=== PATIENT | female | born 1935 | race Caucasian/White ===

== ENCOUNTER 2016-07-31 14:34 | Inpatient (IN) | payer MEDICARE ==
--- NOTE | ~2016-07-31 | CO ---
Unit #: [id number] #: [id number] Patient: FRANCIS HODGE [id number] [place] [address] [facility]. [place], [place] [address] [id number] MR#: [id number] NAME: FRANCIS HODGE ROOM: 472 Age: 81 Sex: F Admission Date: 07/31/2016 : 1935 Attending Physician: Demetria Merritt M.D. Primary Care Physician: Shruthi Kruse M.D. Consultation Date: 08/01/2016 CONSULTATION REPORT REASON FOR CONSULTATION Surgical clearance. HISTORY OF PRESENT ILLNESS The patient is a 81-year-old female who lives at [facility], who is a wheelchair bound and history of dementia. She has periodic episodes, where she is yelling out into the hallway. The patient was brought in for complaints of pain. Apparently, a month ago, she fell out of her wheelchair. She was brought in for evaluation of hip pain and was found to have a left femoral neck fracture. According to the nurse, surgery has planned not to operate at this time due to her immobility status after discussion with family. The patient does have a history of a chronic diastolic congestive heart failure. She was last seen by our group in 12/2015 and treated for CHF. Her last known ejection fraction was 60%. She has mild AI and mild tricuspid valve regurgitation. She also has a history of coronary artery disease with coronary artery bypass graft surgery in [place] in 2002. She has a history of paroxysmal atrial fibrillation and is currently in sinus rhythm and non-anticoagulation from what I can assume is due to history of falls. The patient is no distress at this time. She has a multitude of complaints and has repetitive speech. PAST MEDICAL HISTORY 1. Significant for chronic diastolic heart failure. Echocardiogram in 2014 showed EF 60% to 65% with moderate septal hypokinesis, mild concentric left ventricular hypertrophy, calcified mitral valve with no significant mitral stenosis or regurgitation, mild tricuspid valve regurgitation, and aortic valve insufficiency. 2. Coronary artery disease with coronary artery bypass graft surgery in 2002 in [place] with unknown details. 3. Paroxysmal atrial fibrillation, not on anticoagulation. 4. Hypertension. 5. Hyperlipidemia. 6. Chronic pain. 7. Stage 3 chronic kidney disease. 8. Immobility, wheel-chair bound. SOCIAL HISTORY The patient has a history of tobacco use. Not currently smoker. No alcohol or drug abuse. FAMILY HISTORY Noncontributory. Unit #: [id number] #: [id number] Patient: FRANCIS HODGE ALLERGIES None. OUTPATIENT MEDICATIONS Include multivitamin p.o. daily; vitamin D3 1000 international units p.o. daily; Pepcid 20 mg daily; Ferrex 150 mg capsule daily; aspirin 81 mg daily; K-Dur 20 mEq daily; vitamin B12 100 mcg every other day; Lasix 40 mg daily; Combivent unit dose inhaler one inhalation t.i.d.; Neurontin 100 mg t.i.d.; hydralazine 100 mg t.i.d.; metoprolol tartrate 50 mg q.12 hours; sodium bicarb 650 mg b.i.d.; Flomax 0.4 mg daily; Xanax 0.5 mg at bedtime as needed for sleep; Lortab 5/325 p.o. q.6 hours as needed for pain; sliding scale insulin subcu with meals and at bedtime; Levemir 15 units subcu at bedtime. DIAGNOSTIC STUDIES CARDIOVASCULAR STUDIES: EKG; sinus rhythm, T-wave abnormalities in the inferolateral leads, unchanged from prior. LABORATORY RESULTS: Sodium 133, potassium 4.2, chloride 100, CO2 of 26, BUN 27, creatinine 1.6, glucose 118. White blood cell count 9.4, hemoglobin 11.5, hematocrit 35.1, and platelet count 340. REVIEW OF SYSTEMS Unable to complete due to dementia. PHYSICAL EXAMINATION GENERAL: The patient is awake and alert. Oriented to person. Color is pink. SKIN: Warm and dry. NEUROLOGIC: No focal motor sensory deficits. VITAL SIGNS: Afebrile. Heart rate 92, blood pressure is elevated at 193/78. HEENT: Normal carotid upstrokes. No auscultated bruit. Negative JVD, lying supine. Negative hepatojugular reflux. CHEST: Respirations are regular, unlabored at rest. Bilateral breath sounds. Have good air entry throughout all lung hwang. No crackles, rubs, or wheezes are heard. HEART: S1 and S2. Regular rate and rhythm. No murmurs, rubs, or gallops. ABDOMEN: Soft, nontender, and nondistended. Positive bowel sounds in all 4 quadrants. No ascites noted. EXTREMITIES: Bilateral lower extremities have no pretibial pitting edema. DP/PT pulses are 2+. Capillary refill less than 3 seconds. IMPRESSION 1. Status post fall with left femoral neck fracture. 2. Chronic diastolic heart failure, appears compensated. 3. Uncontrolled hypertension. 4. History of chronic kidney disease. 5. History of paroxysmal atrial fibrillation, not on anticoagulants. 6. History of coronary artery disease with coronary artery bypass graft surgery in 2002 in [place], [place]. 7. Dementia. 8. Reformed smoker. PLAN Surgery is not planned at this time. Her EKG does have some T-wave abnormalities in the inferolateral leads consistent with ischemia, but Unit #: [id number] #: [id number] Patient: FRANCIS HODGE this appears unchanged when compared to prior EKG report. Not in any acute systolic heart failure at this time. If surgery planned, please call us back. We will restart home blood pressure medications as the patient is hypertensive. Dictated by... Laura Zurita APRN for Driss Zurtia M.D. NEOC/yadira TD: 08/02/2016 00:57 JOB #: [id number] CONSULTATION REPORT Page 1 of 1 X X CONSULTATION REPORT
--- NOTE | ~2016-07-31 | DS ---
Unit #: [id number] #: [id number] Patient: FRANCIS HODGE [id number] [address] [address] [id number] I MR#: [id number] NAME: FRANCIS HODGE ROOM: 47 Age: 81 Sex: F Admission Date: 07/31/2016 : 1935 Discharge Date: 08/03/2016 Attending Physician: Demetria Merritt M.D. Primary Care Physician: Shruthi Kruse M.D. DISCHARGE SUMMARY FINAL DIAGNOSES 1. Left subacute femoral neck fracture. 2. Deep vein thrombosis of left lower extremity. 3. Left heel decubitus ulcer. 4. History of coronary artery disease status post coronary artery bypass graft. 5. Hypertension. 6. Diabetes mellitus. 7. Chronic kidney disease. 8. Left ventricular ejection fraction of 60%. 9. Paroxysmal atrial fibrillation. 10. History of chronic diastolic congestive heart failure. 11. Chronic immobility. 12. History of dementia. 13. Chronic anemia. DISCHARGE MEDICATIONS 1. Keflex 250 mg p.o. q.i.d. for 3 days for UTI. Please note patient received IV ceftriaxone during hospitalization. 2. Potassium 20 mEq daily. 3. Vitamin D3 - 1,000 units daily. 4. Lortab 5/325 mg 1 tablet q.4 p.r.n. pain. 5. Aspirin 81 mg daily. 6. Multivitamin daily. 7. Famotidine 20 mg daily. 8. Ferrex 150 mg daily. 9. Levemir 10 units subcu at bedtime. 10. Zestril 10 mg b.i.d. 11. Hydralazine 100 mg q.8 hours. 12. Lasix 40 mg p.o. daily. 13. Lopressor 50 mg q.12. 14. Norvasc 5 mg b.i.d. 15. Xanax has been discontinued. 16. Haldol 1 mg b.i.d. 17. Neurontin 100 mg t.i.d. 18. Xarelto 15 mg b.i.d. until 08/23/16 and then change to 20 mg daily. 19. Tylenol 650 q.6 p.r.n. 20. Flomax 0.4 mg daily. 21. Sodium bicarb 650 mg b.i.d. 22. Combivent nebulizer treatment q.4 p.r.n. CONSULTATIONS DURING HOSPITALIZATION 1. Dr. Chuy Munson from orthopedic surgery. 2. Dr. Wellington from cardiology service. Unit #: [id number] #: [id number] Patient: FRANCIS HODGE DIAGNOSTIC STUDIES LAB WORKUP ON DISCHARGE: BMP shows sodium 136, potassium 3.6, chloride 105, BUN 22, creatinine 1.4, calcium 8.2, magnesium 1.7. CBC shows WBC 9.4, hemoglobin 11.5, hematocrit 35.1, platelet count 340. Urinalysis shows 3+ bacteria. RADIOLOGIC STUDIES DONE DURING HOSPITALIZATION: CT scan of the lower extremities, which show displaced subcapital fracture of the left femoral neck. Ultrasound of the left lower extremity positive for occlusive DVT beginning in the mid superficial femoral vein and extending through the below knee peroneal and tibial veins. HOSPITAL COURSE Ms. Hodge is a 81-year-old female who was admitted from the longterm. Patient had a fall about a month ago. She had an x-ray done at that time, which was negative for fracture. At some point she started complaining of pain in the left hip. CT scan was done, which showed fracture. Patient was admitted to the hospital. Dr. Munson evaluated the patient. Patient is nonambulatory and currently appears comfortable with passive range of motion of the left hip. Patient did not complain of pain during the examination. Patient worked with PT/OT and did not complain of pain. Per ortho, only surgery which can be done is left hip hemiarthroplasty, and this would only be in an effort to restore ambulatory capabilities or to ease the patient's positioning in the wheelchair and with transferring. At this point, there seems to be no advantage to either of these potential benefits that she is already comfortable. As per ortho, the risk of operation certainly outweighs the potential benefit in this instance. Discussed with the patient's sister. The patient's sister does not want any surgical procedure done at this time. Patient does have a left heel decubitus ulcer. Patient will need heel protection device and also Mepilex-type dressing. The patient was found to have left lower extremity DVT. Was started on Lovenox 1 mg/kg body weight subcu q.12. That has been changed to Xarelto. UTI. Patient received IV Rocephin during hospitalization. That is being changed to Keflex. Patient did have elevated blood pressure. Medications have been adjusted as per med/rec. Continue to observe. EXAMINATION ON DISCHARGE VITAL SIGNS: Blood pressure is 162/66, respiratory rate 18, pulse is 79, temperature 98.4. CHEST: Decreased air entry bilaterally. CVS: Regular rhythm. EXTREMITIES: Left lower extremity swelling is present. Heel ulcer is present. Right side pulses are present. Negative edema. NEUROLOGIC: Patient is awake and alert, although not oriented. DISCHARGE INSTRUCTIONS 1. Patient is being discharged to longterm. 2. Medications as per med/rec. 3. Dr. Henry to follow the patient at rehab. 4. Daily Mepilex dressing change to left heel with Bactroban b.i.d. Unit #: [id number] #: [id number] Patient: FRANCIS HODGE 5. Juan boot to left heel. Dictated by... Kiya Francois TD: 08/03/2016 13:42 JOB #: [id number] DISCHARGE SUMMARY Page 1 of 1 X Demetria Merritt MD X DISCHARGE SUMMARY
--- NOTE | ~2016-07-31 | CR206 ---
[facility] A Service of [facility] RADIOLOGY TEXT RESULTS PATIENT: FRANCIS HODGE LOCATION: [place] [address] : [birth year] UNIT #: [id number] AGE: [address]: Demetria Merritt MD SEX: F ORDER DR: [id number] [facility] [address] [facility]. [place], [place] [address] [id number] I MR#: [id number] Acc #: [id number] NAME: FRANCIS HODGE : 1935 SEX: F [facility]: [facility]476 STUDY DESCRIPTION: CR Pelvis 1 or 2 Views Attending Physician: Demetria Merritt M.D. Ordering Physician: Evelina Flores M.D. Primary Care Physician: Shruthi Kruse M.D. MEDICAL IMAGING REPORT This report is preliminary unless electronic signature is present EXAM Pelvis 07/31/2016 1323 hours HISTORY Patient fell 2 weeks ago, hip pain. COMPARISON CT left hip 07/31/2016 FINDINGS AP pelvis film demonstrates left femoral neck fracture with superior and slight lateral migration of the distal femur fragment similar to that seen on CT today. There is slight impaction of the lesser trochanteric region into the superolateral head. The bones are generally osteopenic with degenerative changes seen at the sacroiliac joints, lumbar spine, pubic symphysis and right hip. Extensive atherosclerotic calcifications are present. IMPRESSION 1. Pelvis film confirms the presence of a left femoral neck fracture with proximal migration and impaction. 2. The bones diffusely osteopenic with moderate degenerative changes in the lumbar spine, sacroiliac joints, right hip and pubic symphysis. Dictated by... Bonnie Downey M.D. THIS IS AN ELECTRONICALLY VERIFIED REPORT Bonnie Downey M.D. at 07/31/2016 5:58 PM SMM/marcio TD: 07/31/2016 15:59 JOB #: [id number] [facility] A Service of [facility] RADIOLOGY TEXT RESULTS PATIENT: FRANCIS HODGE LOCATION: [facility] 472-01 : 37 UNIT #: [id number] AGE: [address]: Demetria Merritt MD SEX: F ORDER DR: MEDICAL IMAGING REPORT Page 1 of 1 COPY
--- NOTE | ~2016-07-31 | US85 ---
[facility] A Service of [facility] RADIOLOGY TEXT RESULTS PATIENT: FRANCIS HODGE LOCATION: [facility]- : 37 UNIT #: [id number] AGE: [address]: Demetria Merritt MD SEX: F ORDER DR: [id number] [facility] [address] [place], [place] [address] [id number] I MR#: [id number] Acc #: [id number] NAME: FRANCIS HODGE : 1935 SEX: F STUDY DATE/TIME: 08/01/2016 9:31 UNIT: [facility] ROOM: [facility] STUDY DESCRIPTION: US LE Veins Unilat or Ltd Stdy Attending Physician: Demetria Merritt M.D. Ordering Physician: Demetria Merritt M.D. Primary Care Physician: Shruthi Kruse M.D. MEDICAL IMAGING REPORT This report is preliminary unless electronic signature is present EXAM Unilateral right lower extremity venous Doppler, 08/01/2016. HISTORY Left femoral neck fracture with left leg immobility for 2 months. PROCEDURE Grayscale imaging, color flow Doppler imaging and Doppler wave form analysis. FINDINGS While the common and deep femoral and proximal superficial femoral veins are normal, there is occlusive thrombus in the mid to distal superficial femoral, vein, popliteal vein, and below-knee tibial and peroneal veins. IMPRESSION 1. Positive for occlusive DVT beginning in the mid superficial femoral vein and extending through the below-knee peroneal and tibial veins. The proximal femoral and deep femoral and proximal superficial femoral veins are normal. 2. Of note, the attached work sheet is mislabeled, reporting findings on the right, but, in fact, the findings are in the left lower extremity, as indicated by labeling on the images themselves. Dictated by... Kayden Anders M.D. THIS IS AN ELECTRONICALLY VERIFIED REPORT Kayden Anders M.D. at 08/03/2016 10:32 AM GUANACO/ede [facility] A Service [facility] RADIOLOGY TEXT RESULTS PATIENT: FRANCIS HODGE LOCATION: [place] [address]- : 37 UNIT #: [id number] AGE: [address]: Demetria Merritt MD SEX: F ORDER DR: TD: 08/01/2016 14:50 JOB #: [id number] MEDICAL IMAGING REPORT Page 1 of 1 COPY
--- NOTE | ~2016-07-31 | CO ---
Unit #: [id number] #: [id number] Patient: FRANCIS HODGE [id number] [facility] [address]. [place], [place] [address] [id number] I MR#: [id number] NAME: FRANCIS HODGE ROOM: 47 Age: 81 Sex: F Admission Date: 07/31/2016 : 1935 Attending Physician: Demetria Merritt M.D. Primary Care Physician: Shruthi Kruse M.D. Consultation Date: 08/01/2016 CONSULTATION REPORT CHIEF COMPLAINT Left femoral neck fracture. HISTORY OF PRESENT ILLNESS Ms. Hodge is a 81-year-old female, who has been admitted to [facility] for evaluation of a chronic to subacute left hip fracture. The patient herself is a poor historian with a history of dementia. The majority of the history is obtained from review of medical record and discussion with family. The patient currently resides in [facility] permanently. She has been nonambulatory for approximately the past year. She has had a fall approximately a month ago. Apparently, she had an x-ray at that time, which was negative for fracture. At some point, she began to complaint of pain in the left hip and facility staff also noticed decrease use of her feet and paddling her wheelchair. At least per the report of her sister, she seems to have little pain in her left at the current time. She is assisted by rehab staff in transferring from bed to chair. She states that she may take some increased pain medications, but is unsure. There is some question of a possible concomitant upper respiratory infection at this time as well. PAST MEDICAL HISTORY Coronary artery disease, status post CABG; paroxysmal atrial fibrillation; CHF; hypertension; chronic renal insufficiency; diabetes mellitus; chronic immobility, dementia, chronic anemia. PAST SURGICAL HISTORY Coronary artery bypass grafting and cholecystectomy. HOME MEDICATIONS Home medication list is reviewed include hydralazine, Lopressor, sodium bicarb, Lasix, Flomax, alprazolam, Lortab, NovoLog, Levemir, potassium, vitamin B12, furosemide, Combivent, Neurontin, multivitamin, vitamin D3, famotidine, ferrous sulfate, aspirin. SOCIAL HISTORY The patient resides currently at [facility]. She has a history of dementia. She has no alcohol, tobacco, or drug use. FAMILY HISTORY Noncontributory to the current illness. Unit #: [id number] #: [id number] Patient: FRANCIS HODGE REVIEW OF SYSTEMS Unable to obtain secondary to the patient's mental status. ALLERGIES No known drug allergies. PHYSICAL EXAMINATION GENERAL: Elderly appearing female, examined supine on her hospital bed. PSYCHIATRIC: She is arousable. She is awake and oriented to person only. She is disoriented to year and place. HEENT: Normocephalic and atraumatic cranium. Pupils equal, round, react to light. CARDIAC: Regular rate and rhythm. PULMONARY: No increased work of breathing. ABDOMEN: Nondistended. NEUROLOGIC: Grossly intact in all 4 extremities. No sensory deficits. Cranial nerves II through XII are grossly intact. VASCULAR: Her feet are warm and well perfused. LYMPHATICS: No lymphedema or lymphadenopathy. SKIN: There is no rashes, ulcers, or lesions over the left hip. There is no evidence of open injury or contusion. MUSCULOSKELETAL: She has no pain with log rolling of the left hip or with passive hip flexion up to 70 to 80 degrees on the left hip while supine in bed. She has a stage II decubitus ulcer on the lateral aspect of the right calcaneus. There is no odor. There is no induration or evidence of infection. She has a plantar flexion contracture of the left ankle. I am unable to passively dorsiflex her to even neutral. DIAGNOSTIC STUDIES IMAGING STUDIES: Plain film radiographs reviewed of the pelvis. These demonstrate a subacute versus chronic appearing left femoral neck fracture with bony erosion of the femoral head and sclerosis. The greater trochanter and femur are migrated proximally with an affected extremity shortened significantly. IMPRESSION A 81-year-old nonambulatory female with dementia and the following issues; 1. Left subacute versus chronic left femoral neck fracture. 2. Chronic immobility. 3. Left foot plantar flexion contracture. 4. Left heel stage II decubitus ulceration. PLAN 1. The patient is nonambulatory and currently appears comfortable with passive range of motion of the left hip. Surgical intervention would be in the form of a left hip hemiarthroplasty. This would only be in an effort to restore ambulatory capabilities or to ease the patient positioning in a wheelchair and with transferring. At this point, there seems to be no advantage to either of these potential benefits that she is already comfortable and is not going to return to any ambulatory function. She appears to have possible upper respiratory tract infection. The difficulty clearing secretions. She would certainly be at elevated risk for postoperative respiratory issues. As a result, I think the risk of operation certainly outweighs the potential benefit in this instance. We are going to hold off any surgical intervention; however, seen by physical therapy here to see if she transfers comfortably. If she is able to be Unit #: [id number] #: [id number] Patient: FRANCIS HODGE transferred comfortably and transported in a wheelchair comfortably, then we were going to continue with nonoperative management. 2. We are going to float her left heel while she is here and she will need heel protection device at discharge and Mepilex type dressing change. 3. We will continue to follow her throughout her hospital course. Dictated by... Chuy Munson M.D. JONATHAN/yadira TD: 08/02/2016 00:21 JOB #: [id number] CONSULTATION REPORT Page 1 of 1 X Chuy Munson MD CONSULTATION REPORT
--- NOTE | ~2016-07-31 | HP ---
Unit #: [id number] #: [id number] Patient: FRANCIS HODGE [id number] [facility] [place], [place] [address] [id number] MR#: [id number] NAME: FRANCIS HODGE ROOM: 472 Age: 81 Sex: F Admission Date: 07/31/2016 : 1935 Attending Physician: Demetria Merritt M.D. Primary Care Physician: Shruthi Kruse M.D. HISTORY AND PHYSICAL CHIEF COMPLAINT Lower extremity pain. HISTORY OF PRESENT ILLNESS This is a 81-year-old female who I understand lives in [facility]. She had a fall about two months ago or so although I am not sure of the details. She had an x-ray done at the residential facility which was negative. She started to complain of leg pain. She does have chronic immobility. She went to Dr. Henry's office and outpatient CT scan was done which was normal. It showed left femur fracture and patient was sent to emergency room. The patient is being admitted for left femoral neck fracture. Patient is still complaining of pain. According to her, it is better after she has taken the pain medications. The patient is a very poor historian and does not seem to have much history. I am not able to get anything else beside the pain. PAST MEDICAL HISTORY From the [facility] and from the previous hospitalization: 1. History of coronary artery disease, history of CABG in the past. 2. History of paroxysmal atrial fibrillation. 3. History of chronic diastolic congestive heart failure. 4. History of hypertension. 5. Chronic kidney disease stage 3. 6. Diabetes mellitus type 2. 7. Chronic immobility. 8. History of dementia. 9. Chronic anemia. PAST SURGICAL HISTORY 1. History of coronary artery bypass grafting. 2. History of cholecystectomy. HOME MEDICATIONS 1. Hydralazine 100 mg q.8 h. 2. Lopressor 50 mg q.12 h. 3. Sodium bicarbonate 650 b.i.d. 4. Lasix 30 mg daily. 5. Flomax 0.4 mg daily. 6. Alprazolam 0.5 mg h.s. 7. Lortab 5/325 one tablet q.4 h. p.r.n. 8. NovoLog sliding scale. 9. Levemir 15 units h.s. 10. Potassium 20 mEq daily. 11. Vitamin B12 100 mcg daily. Unit #: [id number] #: [id number] Patient: FRANCIS HODGE 12. Furosemide 40 mg daily. 13. Combivent inhaler t.i.d. 14. Neurontin 100 mg t.i.d. 15. Multivitamin daily. 16. Vitamin D3 daily. 17. Famotidine 20 mg daily. 18. Ferric one capsule daily. 19. Aspirin 81 mg daily. SOCIAL HISTORY Patient lives at [facility]. She has a past history of smoking but I understand she quit a year or so. No history of alcohol abuse or drug abuse. FAMILY HISTORY Noncontributory. Not obtainable. REVIEW OF SYSTEMS Not obtainable at this time. PHYSICAL EXAMINATION VITAL SIGNS: Blood pressure 175/87, respiratory rate 14, pulse 76, temperature 99, oxygen saturation is 100%. GENERAL: The patient is lying comfortably in bed. Does not seem to be in pain at this time. According to her, she is much better after taking medication. Patient is being evaluated in room 472. HEAD: Normocephalic. Eye movements are normal. NECK: Supple. Thyroid normal. Trachea is in midline. CHEST: Fair air entry. No additional sounds. HEART: S1, S2 positive, regular rhythm. ABDOMEN: Soft. Bowel sounds are positive. LOWER EXTREMITIES: Left lower extremity swelling is present, 2 to 3+. Pulses are palpable. Right lower extremity is normal. Left exam was very limited because she is in a lot of pain, I did not even try to move her leg. NEUROLOGIC: Awake, alert, oriented x1. DIAGNOSTIC STUDIES LABORATORY: WBC 11.9, hemoglobin 11.6, hematocrit 37.1, platelet count 316. Sodium 132, potassium 4.8, chloride 99, BUN 29, creatinine 1.5, glucose 86. Urinalysis is 3+ bacteria. IMAGING: CT scan of the lower extremities shows left femoral fracture. ASSESSMENT AND PLAN The patient is being admitted to med-surg unit with: 1. History of fall about two months ago at the residential, although x-ray was negative at that time. Now, with left femoral neck fracture. 2. Urinary tract infection. 3. Chronic kidney disease, stage 3. 4. Coronary artery disease with a history of CABG. 5. History of paroxysmal atrial fibrillation. 6. Chronic diastolic congestive heart failure. 7. Hypertension. 8. Diabetes mellitus type 2. PLAN Unit #: [id number] #: [id number] Patient: FRANCIS HODGE 1. Admit to med-surg. 2. Dr. Munson has been consulted. 3. Please refer to progress note for further orders. 4. Dr. Wellington has been consulted for cardiac clearance. 5. IV Rocephin 1 gram q.24 h. for UTI. 6. Cardiac enzymes times 1 will be done. 7. Accu-Cheks a.c. and h.s. and insulin sliding scale low dose protocol. 8. Left lower extremity venous Doppler will be done. 9. Will keep her n.p.o. after 12 midnight. 10. Please refer to progress note for further orders. 11. I did try to call patient's sister but there is no one available at this time. Dictated by Kiya Francois/sheng TD: 07/31/2016 19:37 JOB #: [id number] HISTORY AND PHYSICAL Page 1 of 1 X Demetria Merritt MD X HISTORY AND PHYSICAL
--- NOTE | ~2016-07-31 | EKG ---
PATIENT: FRANCIS HODGE UNIT #: [id number] Ventricular Rate: 66 BPM Atrial Rate: 66 BPM P-R Interval: 158 ms QRS Duration: 100 ms Q-T Interval: 474 ms QTC Calculation(Bezet): 496 ms P [place]: 75 degrees Calculated R [place]: -53 degrees Calculated T [place]: -63 degrees Diagnosis Line: Normal sinus rhythm with sinus arrhythmia Diagnosis Line: Left axis deviation Diagnosis Line: ST and T wave abnormality, consider inferior Diagnosis Line: ischemia Diagnosis Line: ST and T wave abnormality, consider anterolateral Diagnosis Line: ischemia Diagnosis Line: Prolonged QT Diagnosis Line: Abnormal ECG Diagnosis Line: When compared with ECG of 16-JAN-2016 05:25, Diagnosis Line: Premature supraventricular complexes are no longer Diagnosis Line: Present Diagnosis Line: QT has lengthened Diagnosis Line: Confirmed by LAURA DAUGHERTY MD ([id number]) on 08/02/2016 Diagnosis Line: 4:03:57 PM INTERPRETING MD: DAT ASNDRA
[2016-07-31 14:10] LABS: BASOPHIL# 0.1 X10e3 (0-0.3); BASOPHIL% 0.7 % (0-2.5); EOSINOPHIL# 0.4 X10e3 (0-0.7); EOSINOPHIL% 3.3 % (0.0-7.0); HEMATOCRIT 37.1 % (35.0-45.0); HEMOGLOBIN 11.6 gm/dL (12.0-16.0); LYMPHOCYTE# 1.9 X10e3 (1.0-3.5); LYMPHOCYTE% 15.9 % (17.0-45.0); MEAN CELL VOLUME 92.7 FL (83-96); MEAN CORPUSCULAR HGB CONC 31.2 g/dL (30-36); MEAN PLATELET VOLUME 7.9 FL (6.5-11.5); MONOCYTE# 0.8 X10e3 (0-1.0); MONOCYTE% 6.9 % (3.0-12.0); NEUTROPHIL# 8.7 X10e3 (1.5-7.1); NEUTROPHIL% 73.2 % (40-75); PLATELET COUNT 316 X10e3 (140-420); WHITE BLOOD COUNT 11.9 X10e3 (4.0-10.5)
[2016-07-31 14:12] LABS: DIFF IND NO
[2016-07-31 14:29] LABS: PARTIAL THROMBOPLASTIN TIME 25.9 SECONDS (23.5-31.3); PROTHROMBIN TIME (PATIENT) 10.4 SECONDS (9.6-11.5)
[~2016-07-31 14:34] MED LIST: ACETAMINOPHEN PO; AMLODIPINE BESYL5 MG PO; AMOXICILLIN; ANTACID650 MG PO; APRESOLINE10 M1 PO; ASPIRIN EC81 M1 PO; ASPIRIN81 MG PO; BACTRIM DS TABL1 TA1 PO; BISACODYL EC5 M1 PO; BP PILL; BUMEX PO; CALCIUM 500 +1 EAC5 PO; CLARITIN10 M3 PO; COUMADIN PO; COZAAR100 MG PO; FLOMAX0.4 M1 PO; FLUCONAZOLE200 M2; GABAPENTIN300 MG PO; HUMULIN N100 U/ML; HYDRALAZINE HC100 MG PO; HYDROCODON-ACE1 EAC7 PO; JUVEN PACKET1 EACH PO; LASIX20 MG PO; LEVEMIR FL100 UNIT/1 SUBQ; LEVEMIR100 UNITS/ SUBQ; LOC PO; LOPRESSOR PO; LOSARTAN POTASS25 MG PO; LOVENOX SUBQ; METOPROLOL TAR25 MG PO; MIRALAX17 GM PO; MOBIC15 MG PO; NEURONTIN; NEURONTIN100 MG PO; NITRO DUR TD; NITRODISC0.4 MG EXT; NORVASC10 MG PO; NOVOLIN R100 UNITS/; PEN-VEE K PO; PERCOCET; PERCOCET5/325 PO; PROMOD946 ML PO; PROTONIX PO; SODIUM BICARBO650 MG PO; STRESS FORMULA PO; TOPROL XL PO; VITAMIN C500 M3 PO; VITAMIN D31000 UNI1 PO; VITAMIN D31000 UNIT PO; XANAX0.5 M1 PO; XANAX0.5 MG PO; XANAX1 MG; ZESTRIL40 MG PO; ZINC SULFATE220 M1 PO; ZITHROMAX1 G/PKT PO; ZOCOR PO
[2016-07-31 14:40] LABS: BUN/CREATININE RATIO 19.33; CALCIUM SERUM 8.4 mg/dL (8.4-10.2); CREATININE SERUM 1.5 mg/dL (0.6-1.4); GLOM FILT RATE Estimated 32.8 mL/min (>60); POTASSIUM 4.8 mmol/L (3.5-5.1)
[2016-07-31] MEDS ORDERED: MULTIVITAMINS1 EAC4 PO (15:53)
[2016-07-31] MEDS ORDERED: FAMOTIDINE20 M1 PO (15:54)
[2016-07-31] MEDS ORDERED: VITAMIN D31000 UNIT PO (15:54)
[2016-07-31] MEDS ORDERED: FERREX 150 PLU1 EACH PO (15:55)
[2016-07-31] MEDS ORDERED: ASPIRIN81 MG PO (15:55)
[2016-07-31] MEDS ORDERED: K-LOR20 MEQ PO (15:56)
[2016-07-31] MEDS ORDERED: VITAMIN B12 PO (15:57)
[2016-07-31] MEDS ORDERED: FUROSEMIDE40 MG PO (15:58)
[2016-07-31] MEDS ORDERED: COMBIVENT U/D3 M1 INH (16:01)
[2016-07-31 16:02] LABS: URINE SOURCE CATH
[2016-07-31] MEDS ORDERED: NEURONTIN100 MG PO (16:03)
[2016-07-31] MEDS ORDERED: HYDRALAZINE HC100 MG PO (16:04)
[2016-07-31] MEDS ORDERED: SODIUM BICARBO650 MG PO (16:05)
[2016-07-31] MEDS ORDERED: LOPRESSOR PO (16:05)
[2016-07-31] MEDS ORDERED: LASIX PO (16:06)
[2016-07-31 16:07] LABS: URINE APPEARANCE TURBID; URINE BILIRUBIN NEG (NEG); URINE BLOOD TRACE (NEG); URINE COLOR YELLOW; URINE GLUCOSE NEG (NEG); URINE KETONE NEG (NEG); URINE LEUKOCYTE ESTERASE 3+ (NEG); URINE NITRATE NEG (NEG); URINE PROTEIN 2+ (NEG); URINE SPECIFIC GRAVITY 1.009 (1.003-1.035); URINE UROBILINOGEN 0.2 MG/DL (NEG)
[2016-07-31] MEDS ORDERED: FLOMAX0.4 M1 PO (16:07)
[2016-07-31] MEDS ORDERED: ALPRAZOLAM0.5 MG PO (16:08)
[2016-07-31] MEDS ORDERED: LORTAB 5-325 M1 EACH PO (16:09)
[2016-07-31 16:10] LABS: URINE BACTERIA AUWI 3+ (NEGATIVE); URINE SQUAMOUS EPITHELIAL CELL FEW /[HPF]; UWBCS1 AUWI INNUM (0-5)
[2016-07-31] MEDS ORDERED: NOVOLOG100 U/ML SUBQ (16:10)
[2016-07-31] MEDS ORDERED: LEVEMIR100 UNITS/ SUBQ (16:11)
[2016-07-31 16:21] LABS: U HYALINE CASTS AUWI 0-2 /[LPF]
[2016-07-31 18:17] LABS: CK TOTAL 25 IU/L (26-140)
[2016-08-01 03:13] LABS: BASOPHIL# 0.1 X10e3 (0-0.3); BASOPHIL% 1.1 % (0-2.5); EOSINOPHIL# 0.5 X10e3 (0-0.7); HEMATOCRIT 35.1 % (35.0-45.0); HEMOGLOBIN 11.5 gm/dL (12.0-16.0); LYMPHOCYTE# 2.2 X10e3 (1.0-3.5); LYMPHOCYTE% 23.3 % (17.0-45.0); MEAN CELL VOLUME 90.9 FL (83-96); MEAN CORPUSCULAR HEMOGLOBIN 29.7 PG (28-34); MEAN CORPUSCULAR HGB CONC 32.7 g/dL (30-36); MEAN PLATELET VOLUME 7.9 FL (6.5-11.5); MONOCYTE% 10.3 % (3.0-12.0); NEUTROPHIL# 5.7 X10e3 (1.5-7.1); NEUTROPHIL% 60.3 % (40-75); PLATELET COUNT 340 X10e3 (140-420); RED BLOOD COUNT 3.87 X10e (3.90-5.30); WHITE BLOOD COUNT 9.4 X10e3 (4.0-10.5)
[2016-08-01 03:15] LABS: DIFF IND NO
[2016-08-01 04:04] LABS: BUN/CREATININE RATIO 16.87; CALCIUM SERUM 8.5 mg/dL (8.4-10.2); CREATININE SERUM 1.6 mg/dL (0.6-1.4); GLOM FILT RATE Estimated 30.3 mL/min (>60); POTASSIUM 4.2 mmol/L (3.5-5.1)
[2016-08-02 03:45] LABS: BUN/CREATININE RATIO 17.14; CALCIUM SERUM 8.5 mg/dL (8.4-10.2); CREATININE SERUM 1.4 mg/dL (0.6-1.4); GLOM FILT RATE Estimated 35.6 mL/min (>60); MAGNESIUM 1.9 mg/dL (1.6-3.0); POTASSIUM 3.9 mmol/L (3.5-5.1)
[2016-08-03 06:01] LABS: BUN/CREATININE RATIO 15.71; CALCIUM SERUM 8.2 mg/dL (8.4-10.2); CREATININE SERUM 1.4 mg/dL (0.6-1.4); GLOM FILT RATE Estimated 35.6 mL/min (>60); MAGNESIUM 1.7 mg/dL (1.6-3.0); POTASSIUM 3.6 mmol/L (3.5-5.1)
== END 2016-08-03 16:10 | DRG 536 ==
LOC: CED 14:34 → CEDOF 14:35 → C4C 17:05
PROVIDERS: Physician Assistant Medical; Student in an Organized Health Care Education/Training Program
DX: S72.002A Fracture of unspecified part of neck of left femur, initial encounter for closed fracture (principal); I82.402 Acute embolism and thrombosis of unspecified deep veins of left lower extremity; I13.0 Hypertensive heart and chronic kidney disease with heart failure and stage 1 through stage 4 chronic kidney disease, or unspecified chronic kidney disease; E11.22 Type 2 diabetes mellitus with diabetic chronic kidney disease; I50.32 Chronic diastolic (congestive) heart failure; F03.90 Unspecified dementia, unspecified severity, without behavioral disturbance, psychotic disturbance, mood disturbance, and anxiety; N39.0 Urinary tract infection, site not specified; W05.0XXA Fall from non-moving wheelchair, initial encounter; Y92.129 Unspecified place in nursing home as the place of occurrence of the external cause; L89.622 Pressure ulcer of left heel, stage 2; I25.10 Atherosclerotic heart disease of native coronary artery without angina pectoris; Z95.1 Presence of aortocoronary bypass graft; N18.3 Chronic kidney disease, stage 3 (moderate); Z79.4 Long term (current) use of insulin; I48.0 Paroxysmal atrial fibrillation; Z79.01 Long term (current) use of anticoagulants; Z99.3 Dependence on wheelchair; D53.9 Nutritional anemia, unspecified; Z87.891 Personal history of nicotine dependence; I08.2 Rheumatic disorders of both aortic and tricuspid valves; J06.9 Acute upper respiratory infection, unspecified; M24.575 Contracture, left foot; Z87.442 Personal history of urinary calculi; Z90.49 Acquired absence of other specified parts of digestive tract
CPT/HCPCS: 36415; 72170; 73700; 80048; 81003; 82550; 82947; 83735; 84484; 85025; 85610; 85730; 86850; 86900; 86901; 87086; 87088; 93005; 93971; 94640; 94760; 97163; 97167; 97530; 97535; 99285; C9113; G8978-GP; G8979-GP; G8987-GO; G8988-GO; J0696; J1650; J1815; J2270